=== PATIENT | male | born 1970 | race Caucasian/White ===

== ENCOUNTER 2022-04-18 09:59 | Emergency (ER) | payer OTHER, BC, SELFPAY ==
[2022-04-18 10:06] VITALS: BP 157/87; RESP 18; TEMP 36.2; O2SAT 97; BMI 42.0
--- NOTE | 2022-04-18 10:38 | CRLHL7_ITS ---
For Patients: As a result of the Cures Act, medical imaging exams and procedure reports are released immediately into your electronic medical record. You may view this report before your referring provider. If you have questions, please contact your health care provider. Indication: Injury and pain Technique: Left ankle 3 views. Comparison: None Findings: Large plantar and posterior calcaneal spurs are present. Chronic ossicle adjacent to the medial malleolus. Chronic ossicles adjacent to the lateral malleolus. These represent sequela of old trauma. No acute fracture. No joint effusion. No significant arthrosis. Impression: No sign of acute injury. Dictated by Otoniel Espinal MD @ 04/18/2022 11:33:23 AM (Electronically Signed)
--- NOTE | 2022-04-18 10:39 | ED.LOWEXIN ---
HPI - Extremity Injury (Lower) General Chief Complaint: Extremity Pain/Injury, Lower Stated Complaint: WC/rolled left ankle Time Seen by Provider: 04/18/22 10:32 History of Present Illness HPI Narrative: This 51-year-old male comes in with an injury to his left ankle. He is a [employer] and was on duty when he was coming out of a gas station. He misstepped and rolled his left ankle. He fell onto his right side. He did not have any loss of consciousness or injury to his right side. He does have some swelling over the lateral aspect of his left ankle. He was able to get up and ambulate without much difficulty afterwards but was instructed by his employer to come in for evaluation. Related Data Allergies Allergy/AdvReac Type Severity Reaction Status Date / Time house dust mite Allergy Verified 04/18/22 10:05 Penicillins Allergy Verified 04/18/22 10:05 Review of Systems Status of ROS: Reports: 10 or more systems reviewed and unremarkable except as noted in History and below Narrative: Constitutional: No fevers, no weight gain or loss. Eyes: No discharge. No vision changes. HENT: No congestion, no sore throat, no ear pain. Cardiovascular: No chest pain, no palpitations. Respiratory: No shortness of breath, no wheezes, no cough. Gastrointestinal: No abdominal pain, no vomiting, no diarrhea. Genitourinary: No dysuria, no hematuria. Musculoskeletal: Normal range of motion. He reports some chronic partial rotator cuff symptoms on his right shoulder. Skin: No rashes, no pruritis. Neurological: No dizziness, weakness, sensory change, speech change. Endo/Heme/Allergies: No bruising or bleeding. No polydipsia. Pysch: no suicidality, no anxiety, no insomnia. All other systems reviewed and are negative. PFSH PFSH Social History Smoking Status: Never smoker Do you use any of these nicotine containing products: None Second hand tobacco smoke exposure: No How often do you have a drink containing alcohol: monthly or less How many standard drinks containing alcohol do you have on a typical day: 1 or 2 How often do you have six or more drinks on one occasion: Never AUDIT-C Alcohol total score: 1 Non-prescribed substance use: denies use service: No Exam Narrative: Exam Narrative: Constitutional: Well-developed, well-nourished, no acute distress. HEENT: Normocephalic, atraumatic. Neck: Normal range of motion. Nontender. Supple. Heart: Intact distal pulses. Lungs: No chest discomfort. No wheezes, rhonchi, or rales. Abdomen: Nontender. Back: Normal range of motion. Extremities: Normal range of motion. Mild swelling over the lateral malleolus of the left ankle. There is no joint effusion or ligament instability. Skin: Intact. No rash. Warm. No erythema or pallor. Neurologic: No altered sensation. No weakness. Alert and oriented. Psychiatric: No suicidality. No anxiety or depression. No insomnia. Nursing notes and vitals signs are reviewed. Const: Vital Signs, click to edit/add: Vital Signs - 24 hr 04/18/22 10:06 Temperature 97.2 F L Respiratory Rate 18 Blood Pressure [Le ft Upper Arm] 157/87 H Pulse Oximetry 97 Oxygen Delivery Me thod Room Air Course Vital Signs Vital signs: Initial Vital Signs Temperature 97.2 F L 04/18/22 10:06 Temperature Source Temporal Artery Scan 04/18/22 10:06 Pulse Rhythm 04/18/22 10:06 Respiratory Rate 18 04/18/22 10:06 Blood Pressure 157/87 H 04/18/22 10:06 Blood Pressure Mean 110 04/18/22 10:06 Blood Pressure Position Supine 04/18/22 10:06 Pulse Oximetry 97 04/18/22 10:06 Oxygen Delivery Method 04/18/22 10:06 Vital Signs Temperature 97.2 F L 04/18/22 10:06 Respiratory Rate 18 04/18/22 10:06 Blood Pressure 157/87 H 04/18/22 10:06 Pulse Oximetry 97 04/18/22 10:06 Oxygen Delivery Method 04/18/22 10:06 Temperature 97.2 F L 04/18/22 10:06 Respiratory Rate 18 04/18/22 10:06 Blood Pressure 157/87 H 04/18/22 10:06 Pulse Oximetry 97 04/18/22 10:06 Oxygen Delivery Method 04/18/22 10:06 MDM - Extremity Injury (Lower) MDM Narrative Medical decision making narrative: This patient comes in for evaluation of an injury to his left ankle. X-ray imaging shows no acute findings. His ankle is not unstable and is not showing any sign of effusion. He is ambulatory and is okay to return home to increase activity as tolerated. Imaging Data XR Ankle L: Radiologist's impression: Findings: Large plantar and posterior calcaneal spurs are present. Chronic ossicle adjacent to the medial malleolus. Chronic ossicles adjacent to the lateral malleolus. These represent sequela of old trauma. No acute fracture. No joint effusion. No significant arthrosis. Impression: No sign of acute injury. Discharge Plan Discharge Clinical Impression: Ankle sprain and strain Condition: Stable Instructions: Ankle Sprain (ED) Additional Instructions: Increase activity as tolerated. Use [id number] medicines also as needed and directed. Follow up with MD as needed. Follow Up/Referrals: Oswaldo Simpson MD [Primary Care Provider] - Stand Alone Forms: [facility] Info Instructions
== END 2022-04-18 12:01 | disposition home or self-care (01) ==
PROVIDERS: Emergency Provider Emergency Medicine Emergency Medical Services; PCP Internal Medicine
DX: S93.402A Sprain of unspecified ligament of left ankle, initial encounter (principal); X50.1XXA Overexertion from prolonged static or awkward postures, initial encounter
CPT/HCPCS: 73610; 99283; 99284

== ENCOUNTER 2024-04-15 10:52 | Outpatient (CLI) | payer BC, SELFPAY | END 2024-04-15 10:53 | disposition home or self-care (01) | LOC: NFLDREF 16:27 | PROVIDERS: PCP Internal Medicine; Referring Provider Internal Medicine; Visit Provider Internal Medicine | DX: Z00.00 Encounter for general adult medical examination without abnormal findings (principal); E66.9 Obesity, unspecified; E78.5 Hyperlipidemia, unspecified; F32.A Depression, unspecified; Z12.5 Encounter for screening for malignant neoplasm of prostate | CPT/HCPCS: 80053; 80061; G0103 ==

== ENCOUNTER 2024-09-08 09:25 | Outpatient (CLI) | payer BC, SELFPAY | END 2024-09-08 09:26 | disposition home or self-care (01) | LOC: NFLDREF 09-15 01:56 | PROVIDERS: PCP Internal Medicine; Referring Provider Internal Medicine; Visit Provider Internal Medicine | DX: E78.5 Hyperlipidemia, unspecified (principal); Z12.5 Encounter for screening for malignant neoplasm of prostate | CPT/HCPCS: 80053; 80061; G0103 ==